=== PATIENT | male | born 1980 | race Native Hawaiian/Other Pacific Islander ===

== ENCOUNTER 2020-07-28 09:27 | Emergency (ER) | payer SELFPAY ==
[2020-07-28] MEDS ORDERED: TETANUS,DIPH,PERTUSS(ACELL) VACCINE 0.5 ML SYRINGE IM ONE (09:39)
[2020-07-28] MEDS ORDERED: LIDOCAINE (1%) 10 MG/1 ML VIAL 20 ML MDV INFILTRATI ONE (09:39)
[2020-07-28] MEDS ORDERED: SODIUM CHLORIDE 0.9% 1000 ML 1,000 ML IV ONE ×2 (09:46→11:57)
--- NOTE | 2020-07-28 09:47 | Emergency Department Report ---
ED Lower Extremity HPI - General Chief Complaint: Laceration/Recheck/Suture Stated Complaint: LEFT KNEE INJURY Time Seen by Provider: 07/28/20 09:46 Source: patient Mode of arrival: Wheelchair Limitations: No Limitations - History of Present Illness Initial Comments: Patient is a pleasant 40-year-old male that comes to the emergency room after cutting his knee while doing yard work. He had gotten a new knife was using it to do yard work and it slipped hitting his left knee. He has a large laceration over the patella. Bleeding controlled. No other injury. Tdap not up-to-date. Complaint: knee injury -: Sudden, minutes(s) Injury: Knee: Left Type of Injury: laceration Place: work Severity: mild Improves With: nothing Worsens With: nothing Context: other - Related Data Previous Rx's Medication Instructions Recorded Last Taken Type Naproxen [Naprosyn] 500 mg PO BID PRN #20 tablet 07/28/20 Unknown Rx traMADoL [Ultram] 50 mg PO Q6HR PRN #12 tablet 07/28/20 Unknown Rx Allergies Allergy/AdvReac Type Severity Reaction Status Date / Time No Known Allergies Allergy Verified 07/28/20 10:10 ED Review of Systems ROS: Stated complaint: LEFT KNEE INJURY Other details as noted in HPI Comment: All other systems reviewed and negative ED Past Medical Hx - Past Medical History Previous Medical History?: No - Surgical History Past Surgical History?: No - Family History Family history: no significant - Social History Smoking Status: Never Smoker Substance Use Type: Alcohol - Medications Home Medications: Home Medications Medication Instructions Recorded Confirmed Last Taken Type Naproxen [Naprosyn] 500 mg PO BID PRN #20 tablet 07/28/20 Unknown Rx traMADoL [Ultram] 50 mg PO Q6HR PRN #12 tablet 07/28/20 Unknown Rx ED Physical Exam - General Limitations: No Limitations General appearance: alert, in no apparent distress - Head Head exam: Present: atraumatic, normocephalic - Eye Eye exam: Present: normal appearance - ENT ENT exam: Present: mucous membranes moist - Neck Neck exam: Present: normal inspection - Respiratory Respiratory exam: Present: normal lung sounds bilaterally. Absent: respiratory distress - Cardiovascular Cardiovascular Exam: Present: regular rate, normal rhythm. Absent: systolic murmur, diastolic murmur, rubs, gallop - GI/Abdominal GI/Abdominal exam: Present: soft, normal bowel sounds - Rectal Rectal exam: Present: deferred - Extremities Exam Extremities exam: Present: normal inspection - Expanded Lower Extremity Exam Left Knee exam: Present: tenderness, swelling, laceration Lower Leg exam: Present: normal inspection - Back Exam Back exam: Present: normal inspection - Neurological Exam Neurological exam: Present: alert, oriented X3 - Psychiatric Psychiatric exam: Present: normal affect, normal mood - Skin Skin exam: Present: warm, dry, normal color, other (knee lac see procedure note). Absent: rash - Laceration /Wound Repair l knee Wound Location: lower extremity Wound Length (cm): 12 Wound's Depth, Shape: linear Wound Explored: no foreign body removed Irrigated w/ Saline (ccs): 500 Betadine Prep?: Yes Anesthesia: 1% Lidocaine Volume Anesthetic (ccs): 5 Wound Debrided: minimal Wound Repaired With: sutures Suture Size/Type: 3:0 Number of Sutures: 7 Layer Closure?: No Sterile Dressing Applied?: Yes ED Lower Extremity MDM - Radiology Data Radiology results: report reviewed, image reviewed - Medical Decision Making X-ray noted. Tdap given. Ancef 1 g/normal saline given. Medicated for pain. staffed with Dr Horne. Dr. Horne reviewed the images and recommends closure of the knee, no injury to the bone seen. Wound was cleaned and irrigated. Wound repaired per procedure note. Dressing applied. Knee immobilized with a knee immobilizer. Patient placed on crutches. Patient understands that he needs to avoid bending the need to prevent the stitches from opening or from bleeding from the wound. Distal DP and PT are palpable. Foot is warm. Patient has full range of motion of his distal extremity as well as his left knee. This is before and after wound closure. Patient being discharged home with discharge plan of care including wound care, Keflex and follow-up. Patient verbalizes an understanding of the need to use his immobilizer and crutches. He verbalizes how to do wound care. He understands that he needs to return to the ER to have the sutures removed. Vital signs are normal as documented manually by the RN - Differential Diagnosis ro fx/[id number] injury Critical care attestation.: If time is entered above; I have spent that time in minutes in the direct care of this critically ill patient, excluding procedure time. ED Disposition Clinical Impression: Laceration of knee Disposition: DC-01 TO HOME OR SELFCARE Is pt being admited?: No Does the pt Need Aspirin: No Condition: Stable Instructions: Laceration Care, Adult, [id number] Additional Instructions: MED ORDERED TODAY UNTIL GONE MOTRIN OR TYLENOL OVER THE COUNTER CAN BE USED FOR PAIN USE KNEE IMMOBILIZER AND CRUTCHES TO PREVENT THE KNEE FROM MOVING AND THE SUTURES BUSTING OPEN FOLLOW UP IN ER IN 10-14 DAYS TO HAVE SUTURES TAKEN OUT IF YOU HAVE A PROBLEM IN THE MEANTIME REFERRAL TO THE [facility] DOCTOR IS BELOW STARTING IN THE MORNING YOU SHOULD TAKE DRESSING DOWN, WASH WITH SOAP AND WATER AND REAPPLY A GUAZE DRESSING AND STEPHANIE WRAP- THEN IMMOBILIZER DO NOT USE PEROXIDE ON THE WOUND Prescriptions: Naproxen [Naprosyn] 500 mg PO BID PRN #20 tablet PRN Reason: Pain traMADoL [Ultram] 50 mg PO Q6HR PRN #12 tablet PRN Reason: Pain Referrals: BRISA HORNE MD [Staff Physician] - 3-5 Days Time of Disposition: 10:56
[2020-07-28] MEDS ORDERED: HYDROcodone/ACETAMINOPHEN 5-325 MG TAB PO SCH (10:30)
[2020-07-28] MEDS ORDERED: SODIUM CHLORIDE 0.9% IRR 500 ML BOTTLE IR SCH (10:30)
--- NOTE | 2020-07-28 10:36 | XRay Report ---
Left knee-3 views INDICATION: large lac over left knee. COMPARISON: None. IMPRESSION: There is a laceration over the anterior aspect of the knee directly overlying the patell a, with subcutaneous gas and soft tissue swelling/hematoma formation. No acute fracture identified. Faint radiopacities are seen on the lateral view directly anterior to the patella which may represen t debris or tiny foreign bodies. Mild underlying tricompartmental DJD. Normal alignment. Signer Name: Syd Villalobos MD Signed: 07/28/2020 10:31 AM Workstation Name: [id number]
[2020-07-28] MEDS ORDERED: HYDROmorphone 1 MG/1 ML INJ ONE (11:50)
[2020-07-28] MEDS ORDERED: LIDOCAINE 2%/EPINEPHRINE 1:100,000 VIAL (20 ML) INFILTRATI ONE (11:53)
[2020-07-28] MEDS ORDERED: HYDROmorphone 1 MG/1 ML INJ IV ONE (13:13)
[2020-07-28] MEDS ORDERED: oxyCODONE /ACETAMINOPHEN 5-325MG TAB PO ONE (13:23)
[2020-07-28 14:54] VITALS: BP 161/91
== END 2020-07-28 14:54 | disposition home or self-care (01) ==
LOC: ED 09:27
DX: S81.012A Laceration without foreign body, left knee, initial encounter (principal); Z72.89 Other problems related to lifestyle; Z79.899 Other long term (current) drug therapy; W22.8XXA Striking against or struck by other objects, initial encounter; Y93.89 Activity, other specified; Y92.89 Other specified places as the place of occurrence of the external cause; Y99.8 Other external cause status
CPT/HCPCS: 12004; 73562; 90471; 90715; 96361; 96365; 99284; J0690; J1170; J7030

== ENCOUNTER 2020-08-09 13:25 | Emergency (ER) | payer SELFPAY ==
--- NOTE | 2020-08-09 13:36 | Emergency Department Report ---
Suture/Staple Removal - HPI Stated Complaint: SUTURE REM Time Seen by Provider: 08/09/20 13:28 When Sutures or Patricia Placed: 11-14 Days Ago Wound Location: left knee ED Review of Systems ROS: Stated complaint: SUTURE REM Other details as noted in HPI Comment: All other systems reviewed and negative Constitutional: denies: chills, fever Eyes: denies: eye pain, eye discharge, vision change ENT: denies: ear pain, throat pain Respiratory: denies: cough, shortness of breath, wheezing Cardiovascular: denies: chest pain, palpitations Endocrine: no symptoms reported Gastrointestinal: denies: abdominal pain, nausea, diarrhea Genitourinary: denies: urgency, dysuria Musculoskeletal: denies: back pain, joint swelling, arthralgia Skin: denies: rash, lesions Neurological: denies: headache, weakness, paresthesias Psychiatric: denies: anxiety, depression Hematological/Lymphatic: denies: easy bleeding, easy bruising ED Past Medical Hx - Social History Smoking Status: Never Smoker Substance Use Type: Alcohol - Medications Home Medications: Home Medications Medication Instructions Recorded Confirmed Last Taken Type Naproxen [Naprosyn] 500 mg PO BID PRN #20 tablet 07/28/20 Unknown Rx traMADoL [Ultram] 50 mg PO Q6HR PRN #12 tablet 07/28/20 Unknown Rx Suture Removal Exam - Exam General: Vital signs noted. No distress. Alert and acting appropriately. Wound: Yes Wound Dehiscence (slight to medial aspect of the laceration), No Pathologic Erythema, No Tenderness, No Drainage, No Pus Other Systems: All other systems reviewed and are unremarkable. ED Course - Reevaluation(s) Reevaluation #1: 08/09/20 13:33 Patient is speaking in full sentences with no signs of distress noted. ED Recheck MDM - Medical Decision Making 40-year-old male that presents with suture removal. Patient is stable and was examined by me. After examining the laceration site there is some wound dehiscence that is fully not closed. Furthermore, there is some areas that looks like it is fully not closed. Patient was instructed to return in about 5 days for reassessment and suture removal. Patient did state that patient was instructed to follow-up with a orthopedic doctor in 3-5 days or if symptoms worsen and continue return to emergency room as soon as possible. At time of discharge, the patient does not seem toxic or ill in appearance. No acute signs of distress noted. Patient agrees to discharge treatment plan of care. No further questions noted by the patient. Critical care attestation.: If time is entered above; I have spent that time in minutes in the direct care of this critically ill patient, excluding procedure time. ED Disposition Clinical Impression: Laceration re-check Disposition: DC-01 TO HOME OR SELFCARE Is pt being admited?: No Does the pt Need Aspirin: No Condition: Stable Additional Instructions: Follow-up with a primary care doctor in 3-5 days or if symptoms worsen and continue return to emergency room as soon as possible. Return in 5 days for reassessment of the suturing for possible suture removal. Referrals: PRIMARY CARE, [Referring] - 3-5 Days BRISA FERNANDEZ MD [Staff Physician] - 3-5 Days Time of Disposition: 13:36
== END 2020-08-09 14:51 | disposition home or self-care (01) ==
LOC: ED 13:25

== ENCOUNTER 2020-08-16 11:22 | Emergency (ER) | payer SELFPAY ==
[2020-08-16 12:06] VITALS: BP 140/81
--- NOTE | 2020-08-16 13:20 | Emergency Department Report ---
Suture/Staple Removal - [facility] Chief Complaint: Wound/Laceration Stated Complaint: SUTURE REMOVAL Time Seen by Provider: 08/16/20 13:19 When Sutures or Patricia Placed: >14 Days Ago (07/28/20) Wound Location: Left knee ED Review of Systems ROS: Stated complaint: SUTURE REMOVAL Other details as noted in HPI Comment: All other systems reviewed and negative Musculoskeletal: arthralgia, other (laceration left knee) ED Past Medical Hx - Past Medical History Previous Medical History?: No - Surgical History Past Surgical History?: No - Social History Smoking Status: Never Smoker Substance Use Type: Alcohol - Medications Home Medications: Home Medications Medication Instructions Recorded Confirmed Last Taken Type Naproxen [Naprosyn] 500 mg PO BID PRN #20 tablet 07/28/20 Unknown Rx traMADoL [Ultram] 50 mg PO Q6HR PRN #12 tablet 07/28/20 Unknown Rx Suture Removal Exam - Exam General: Vital signs noted. No distress. Alert and acting appropriately. Wound: Yes Pathologic Erythema, Yes Tenderness (Mild mainly around the wound), No Drainage, No Pus, No Wound Dehiscence Other Systems: All other systems reviewed and are unremarkable. ED Course Vital Signs 08/16/20 12:05 Temperature 98.1 F Pulse Rate 75 Respiratory 12 Rate Blood Pressure 140/81 O2 Sat by Pulse 99 Oximetry - Procedure Description Procedures done: Suture removal: Location left knee; all sutures removed; mild wound dehiscence noted mainly to the proximal aspect of the laceration; mild crusting; no pus drainage, cellulitis or abscess; all sutures removed Critical care attestation.: If time is entered above; I have spent that time in minutes in the direct care of this critically ill patient, excluding procedure time. ED Disposition Clinical Impression: Visit for suture removal Disposition: DC- TO HOME OR SELFCARE Is pt being admited?: No Does the pt Need Aspirin: No Condition: Stable Instructions: Wound Closure Removal, Care After Additional Instructions: Continue to keep the wound clean with soap and water. Do not use peroxide or alcohol. You can apply a thin layer of Neosporin after each cleaning. I recommend that you do this for another week. Follow-up with your primary care doctor. Return to the ER if your symptoms changes or worsens in any way. Referrals: PRIMARY CARE, [Primary Care Provider] - 3-5 Days Time of Disposition: 13:22
== END 2020-08-16 13:56 | disposition home or self-care (01) ==
LOC: ED 11:22
DX: S81.012D Laceration without foreign body, left knee, subsequent encounter (principal); Z72.89 Other problems related to lifestyle; Z79.899 Other long term (current) drug therapy; X58.XXXD Exposure to other specified factors, subsequent encounter